=== PATIENT | female | born 1995 | race Caucasian/White ===

== ENCOUNTER 2016-11-22 20:09 | Emergency (ER) | payer BC, MEDICAID ==
[~2016-11-22] VITALS: Ht 157.5 cm; Wt 59.8 kg
[~2016-11-22 20:09] MED LIST: CEPH500C3 PO; Z.0.BCPILL PO
[2016-11-22 20:20] VITALS: BP 109/77; PULSE 106; RESP 16; TEMP 98.8; O2SAT 97
--- NOTE | 2016-11-22 20:35 | PD ---
HPI . fever, right flank pain x 2-3 days Chief Complaint: fever and flank pain Time Seen by Provider: 20:35 Travel History International Travel<30 days: No Contact w/Intl Traveler<30days: No Traveled to known affect area: No History of Present Illness HPI 21-year-old female with past medical history here with complaints of right sided flank pain and fever for 2-3 days. Patient says that she also had some cold symptoms about a week ago. She is still having some slight cough, but her main issue is the right sided flank pain and fever. Yesterday her temperature was 100.0. Today she is afebrile. She denies any dysuria or changes in her urinary stream or frequency. She denies any chance of and is on control. She has no other complaints. PFSH Past Medical History Anemia: Yes Diminished Hearing: No Immunizations Current: Yes : 0 Past Surgical History Ear Surgery: Yes (TUBES IN EARS SEVERAL TIMES-REMOVED 2004) Tonsillectomy: Yes (adenoids and bilateral myringotomy) Social History Alcohol Use: No Tobacco Use: No Substance Use: No Allergies-Medications (Allergen,Severity, Reaction): Coded Allergies: Bactrim (Verified Allergy, Mild, MAKES PATIENT FEEL FUNNY, 11/22/16) Reported Meds & Prescriptions Reported Meds & Active Scripts Active No Active Prescriptions or Reported Medications Review of Systems General / Constitutional: Positive: Fever Eyes: No: Visual changes HENT: No: Headaches Cardiovascular: No: Chest Pain or Discomfort Respiratory: No: Shortness of Breath Gastrointestinal: No: Abdominal Pain Genitourinary: No: Dysuria Musculoskeletal: Positive: Pain (right flank pain) Skin: No Rash Neurologic: No: Weakness Psychiatric: No: Depression Endocrine: No: Polydipsia Hematologic/Lymphatic: No: Easy Bruising Physical Exam Narrative GENERAL: AAO x 3, no acute distress, Well-nourished, well-developed patient. SKIN: Warm and dry. No visible rashes or bruising. HEAD: Normocephalic and atraumatic. EYES: No scleral icterus. No injection or drainage. EOM intact, PERRLA. ENT: No nasal drainage noted. Mucous membranes pink. Airway patent. Scarred TMs from previous surgeries. No posterior pharynx abnormalities NECK: Supple, trachea midline. No JVD. CARDIOVASCULAR: Regular rate and rhythm without murmurs, gallops, or rubs. RESPIRATORY: Breath sounds equal bilaterally. No accessory muscle use. No rhonchi or rales. GASTROINTESTINAL: Abdomen soft, non-tender, nondistended. EXTREMITIES: No cyanosis or edema. BACK: Nontender without obvious deformity. + right CVA tenderness. PSYCH: AAO x 3, normal affect. Data Data Last Documented VS Vital Signs Date Time Temp Pulse Resp B/P Pulse Ox O2 Delivery O2 Flow Rate FiO2 11/22/16 20:39 16 97 Room Air 11/22/16 20:36 98.8 106 109/77 Orders Urinalysis - C+S If Indicated (11/22/16 20:41) Urine Culture (11/22/16 20:45) Labs Laboratory Tests Test 11/22/16 20:45 Urine Color YELLOW Urine Turbidity HAZY Urine pH 6.0 Urine Specific [place] 1.016 Urine Protein TRACE mg/dL Urine Glucose (UA) NEG mg/dL Urine Ketones 40 mg/dL Urine Occult Blood SMALL Urine Nitrite NEG Urine Bilirubin NEG Urine Leukocyte Esterase MOD Urine RBC 10-14 /hpf Urine WBC 25-49 /hpf Urine Squamous Epithelial > 8 /hpf Cells Urine Bacteria FEW /hpf Microscopic Urinalysis Comment CULTURE INDICATED MDM Medical Decision Making Medical Screen Exam Complete: Yes Emergency Medical Condition: Yes Medical Record Reviewed: Yes Differential Diagnosis UTI, pyelonephritis, less likely nephrolithiasis Narrative Course 21-year-old female with past medical history here with complaints of right sided flank pain and fever for 2-3 days. Patient says that she also had some cold symptoms about a week ago. She is still having some slight cough, but her main issue is the right sided flank pain and fever. Yesterday her temperature was 100.0. Today she is afebrile. She denies any dysuria or changes in her urinary stream or frequency. She denies any chance of and is on control. She has no other complaints. Patient seen and examined. Recommend UA as she might have a urinary tract infection and pyelonephritis. I do not suspect kidney stones. Laboratory Tests Test 11/22/16 20:45 Urine Color YELLOW Urine Turbidity HAZY Urine pH 6.0 Urine Specific [place] 1.016 Urine Protein TRACE mg/dL Urine Glucose (UA) NEG mg/dL Urine Ketones 40 mg/dL Urine Occult Blood SMALL Urine Nitrite NEG Urine Bilirubin NEG Urine Leukocyte Esterase MOD Urine RBC 10-14 /hpf Urine WBC 25-49 /hpf Urine Squamous Epithelial > 8 /hpf Cells Urine Bacteria FEW /hpf Microscopic Urinalysis Comment CULTURE INDICATED Patient verbalized understanding of instructions, questions were answered, and thanked me for their care. I advised them if their condition worsens, please return to the nearest emergency room for further care. Diagnosis Primary Impression: Urinary tract infection Qualified Code: N30.01 - Acute cystitis with hematuria Additional Impression: Pyelonephritis Patient Instructions: General Instructions Additional Instructions: Please return to emergency department if your symptoms return or worsen. Follow up with your primary care provider. Take medications as prescribed. Stay hydrated. We will contact you if there is any abnormality on your urine culture. Med/Other Pt SpecificInfo: Prescription(s) given Scripts Ciprofloxacin (Cipro)500 Mg Sls169 Mg PO BID #20 TAB Prov:Marla Doherty MD 11/22/16 Disposition: 01 DISCHARGE HOME Condition: Stable Alicia Meyer Nov 22, 2016 20:35
[2016-11-22 20:36] VITALS: BP 109/77; PULSE 106; RESP 16; TEMP 98.8; O2SAT 97
[2016-11-22 20:56] LABS: BLOOD, URINE SMALL (NEG); GLUCOSE,URINE NEG (NEG); KETONE, URINE 40 mg/dL (NEG); NITRITE,URINE NEG (NEG)
[2016-11-22 21:03] LABS: SQUAMOUS EPITHELIAL CELL URINE > 8 /hpf (0-5); URINE COLOR YELLOW (YELLW/STRAW)
[2016-11-22 21:04] LABS: BACTERIA, URINE FEW /hpf; COMMENT (UR) CULTURE INDICATED; CULTURE IF INDICATED CULTURE INDICATED
[2016-11-22] MEDS ORDERED: CIPR-9 PO (21:11)
== END 2016-11-22 21:25 | disposition home or self-care (01) ==
LOC: PHED 20:09 → PHEFT 21:25
DX: N39.0 Urinary tract infection, site not specified (principal); N12 Tubulo-interstitial nephritis, not specified as acute or chronic; B96.20 Unspecified Escherichia coli [E. coli] as the cause of diseases classified elsewhere
CPT/HCPCS: 81001; 87077; 87086; 87186; 99284